=== PATIENT | female | born 1970 | race Caucasian/White ===

== ENCOUNTER 2017-01-03 17:03 | Emergency (ER) | payer SELFPAY ==
[~2017-01-03] VITALS: Ht 165.1 cm; Wt 66.0 kg
[2017-01-03 17:05] VITALS: BP 153/88; PULSE 87; RESP 14; TEMP 98.2; O2SAT 97
--- NOTE | 2017-01-03 18:19 | PD ---
HPI Chief Complaint: Musculoskeletal Complaint Time Seen by Provider: 18:19 Travel History International Travel<30 days: No Contact w/Intl Traveler<30days: No Traveled to known affect area: No History of Present Illness HPI 46-year-old female presents emergency Department with complaint of right elbow pain since last Monday after hitting it against a wall very hard. Thought her symptoms would improve but they haven't. She tried picking something up at work today and almost dropped it because she had shocking pain go up and down her arm from her elbow. Reports her elbow did become edematous after she hit it but has subsided. She hasn't taken any medications or tried any treatments any treatments to alleviate her symptoms. Pain is aggravated with straightening her arm. No known relieving factors. Denies paresthesias, loss of sensation. Reports decreased range of motion secondary to pain. Dr. Vanessa is primary care provider. History of asthma. Allergies to antihistamines, contrast media, Rocephin, Toradol. No other modifying factors or associated signs and symptoms. PFSH Past Medical History Asthma: Yes Respiratory: Yes (ASTHMA) Social History Tobacco Use: No Allergies-Medications (Allergen,Severity, Reaction): Coded Allergies: Contrast Media (Verified Allergy, Severe, HIVES, 01/03/17) Rocephin (Verified Allergy, Severe, HIVES, 01/03/17) Toradol (Verified Allergy, Severe, HIVES, 01/03/17) Uncoded Allergies: ANTIHISTAMINE (Allergy, Severe, HIVES, 01/03/17) Review of Systems Except as stated in HPI: all other systems reviewed are Neg Physical Exam Narrative GENERAL: Well-nourished, well-developed female patient, in no acute distress; afebrile, nontoxic-appearing SKIN: Warm and dry. HEAD: Atraumatic. Normocephalic. EYES: Pupils equal and round. No scleral icterus. No injection or drainage. ENT: Mucosa pink and moist. Airway patent. NECK: Trachea midline. CARDIOVASCULAR: Regular rate. RESPIRATORY: No accessory muscle use. GASTROINTESTINAL: Flat. MUSCULOSKELETAL: Right elbow with decreased range of motion, unable to straighten arm completely secondary to pain; without edema; without erythema; with tenderness on palpation; with full 5/5 strength, but causes pain; sensory intact; 2+ radial pulse. No obvious deformities. No clubbing. No cyanosis. No edema. NEUROLOGICAL: Awake and alert. Oriented 3. No obvious cranial nerve deficits. Motor grossly within normal limits. Normal speech. PSYCHIATRIC: Appropriate mood and affect; insight and judgment normal. Data Data Last Documented VS Vital Signs Date Time Temp Pulse Resp B/P Pulse Ox O2 Delivery O2 Flow Rate FiO2 01/03/17 17:05 98.2 87 14 153/88 97 Room Air Orders Elbow, Complete (4 Vws) (01/03/17 18:20) Sling Cradle Arm (01/03/17 ) Sling Cradle Arm (01/03/17 ) [facility] Medical Decision Making Medical Screen Exam Complete: Yes Emergency Medical Condition: Yes Medical Record Reviewed: Yes Differential Diagnosis Elbow fracture, nerve impingement, elbow contusion Narrative Course 46-year-old female with right elbow pain or injuring it last Monday. Patient is afebrile and nontoxic appearing. The right upper extremity supple and non- tense with 2+ radial pulse and sensory intact without erythema or edema. The patient is unable to extend the arm completely secondary to pain. She does have full pulling strength but causes shooting pain up and down her arm. I offered the patient a nonnarcotic and she declined at this time. Right elbow x- ray ordered. 1905: Right elbow x-ray concludes an unremarkable examination. Arm sling provided for support. Instructed patient to follow up with orthopedic as needed. The patient prescriptions for narcotics for home and she declined at this time. Patient is medically cleared and stable for discharge. Discussed reasons to return to the emergency department. Instructed patient to follow up with primary care provider. Patient agrees with treatment plan. The patients vital signs are stable and the patient is stable for outpatient follow-up and treatment. Patient discharged home, stable and in no acute distress. Diagnosis Primary Impression: Contusion of right elbow Qualified Code: S50.01XA - Contusion of right elbow, initial encounter Referrals: Primary Care Physician Patient Instructions: Contusion in Adults (ED), General Instructions Departure Forms: Tests/Procedures, Work Release Enter return to work date: Jan 04, 2017 Additional Instructions: Ibuprofen or Tylenol as directed and as needed for pain and inflammation Rest and immobilize the affected area Apply ice to reduce swelling to affected area Avoid elbow pressure by not leaning or placing your weight on your elbow to rise from a lying or sitting position Follow-up with primary care provider Follow-up with orthopedic as needed Return to the emergency department immediately with worsening of symptoms Med/Other Pt SpecificInfo: Prescription(s) given Disposition: 01 DISCHARGE HOME Condition: Stable Wendy Irizarry Jan 03, 2017 18:19
--- NOTE | 2017-01-03 18:59 | RADRPT ---
EXAM DATE/TIME: 01/03/2017 18:35 [facility] COMPARISON: No previous studies available for comparison. INDICATIONS : Patient states right posterior elbow pain from hitting counter a week ago. MEDICAL HISTORY : None. SURGICAL HISTORY : None. ENCOUNTER: Initial ACUITY: 1 week PAIN SCORE: 9/10 LOCATION: Right posterior elbow. FINDINGS: Multiple view examination of the right elbow demonstrates no soft tissue swelling, joint effusion, or fracture. The osseous structures are in normal alignment. Bony mineralization is normal. CONCLUSION: Unremarkable examination of the right elbow. Deejay Park MD on January 03, 2017 at 18:55 Board Certified Radiologist. This report was verified electronically.
== END 2017-01-03 19:22 | disposition home or self-care (01) ==
LOC: NEPB 17:03
DX: S50.01XA Contusion of right elbow, initial encounter (principal); J45.909 Unspecified asthma, uncomplicated; W22.01XA Walked into wall, initial encounter
CPT/HCPCS: 73080; 99283

== ENCOUNTER 2017-05-03 17:40 | Emergency (ER) | payer OTHER, MEDICARE ==
[~2017-05-03] VITALS: Ht 165.1 cm; Wt 75.0 kg
[2017-05-03 17:41] VITALS: BP 148/87; PULSE 92; RESP 18; TEMP 98.5; O2SAT 95
--- NOTE | 2017-05-03 17:56 | PD ---
Physical Exam Time Seen by Provider: 17:54 Narrative 46yo F c/o left 5th toe laceration and injury today. Patient seen in triage. VS reviewed. Awaiting bed placement. Data Data Last Documented VS Vital Signs Date Time Temp Pulse Resp B/P Pulse Ox O2 Delivery O2 Flow Rate FiO2 05/03/17 17:41 98.5 92 18 148/87 95 Room Air MDM Supervised Visit with CARLY: Wendy Batista May 03, 2017 17:56
--- NOTE | 2017-05-03 19:20 | PD ---
HPI Chief Complaint: Injury Time Seen by Provider: 19:15 Travel History International Travel<30 days: No Contact w/Intl Traveler<30days: No Traveled to known affect area: No History of Present Illness HPI 46 yo F c/o L 5th toe pain after she stubbed it against a metal sign at work. Pain was severe. Bleeding was brisk, but resolved with a band aid. No other injury to report. She has been ambulatory since the accident. PFSH Past Medical History Asthma: Yes Respiratory: Yes (ASTHMA) ?: Not Past Surgical History Hysterectomy: Yes Social History Tobacco Use: No Allergies-Medications (Allergen,Severity, Reaction): Coded Allergies: Contrast Media (Verified Allergy, Severe, HIVES, 01/03/17) Rocephin (Verified Allergy, Severe, HIVES, 01/03/17) Toradol (Verified Allergy, Severe, HIVES, 01/03/17) Uncoded Allergies: ANTIHISTAMINE (Allergy, Severe, HIVES, 01/03/17) Reported Meds & Prescriptions Reported Meds & Active Scripts Active Reported Omeprazole 20 Mg Tab 20 Mg PO DAILY Review of Systems General / Constitutional: No: Fever Musculoskeletal: Positive: Pain Physical Exam Narrative GENERAL: 46 yo F, WNWD, mild distress SKIN: Warm and dry. Approx 0.5cm in circumference avulsion along the 5th at it' s distal portion with trace residual red blood. HEAD: Normocephalic. EYES: No scleral icterus. No injection or drainage. NECK: Supple, trachea midline. No JVD or lymphadenopathy. CARDIOVASCULAR: Regular rate and rhythm without murmurs, gallops, or rubs. MUSCULOSKELETAL: No cyanosis, or edema. Small avulsion as noted without gross deformity otherwise. BACK: Nontender without obvious deformity. No CVA tenderness. Data Data Last Documented VS Vital Signs Date Time Temp Pulse Resp B/P Pulse Ox O2 Delivery O2 Flow Rate FiO2 05/03/17 17:41 98.5 92 18 148/87 95 Room Air VS reviewed Orders Foot, Complete ([id number]) (05/03/17 ) ^ Wound Care (05/03/17 19:18) Ibuprofen (Motrin) (05/03/17 19:30) MDM Medical Decision Making Medical Screen Exam Complete: Yes Emergency Medical Condition: Yes Differential Diagnosis Closed fracture, open fracture, avulsion, laceration Narrative Course Foot xray: no fracture of the 5th digit Wound irrigated and dressed. Pt given Motrin, an appropriate intervention for a stubbed toe with skin avulsion. Pt ready for discharge. Diagnosis Primary Impression: Toe abrasion Qualified Code: S90.415A - Toe abrasion, left, initial encounter Additional Impression: Toe contusion Qualified Code: S90.222A - Contusion of lesser toe of left foot with damage to nail, initial encounter Referrals: Nathan Vanessa MD 2 days Additional Instructions: You have a choice when it comes to health care, and we are glad that you chose [facility]. Hopefully, we have met your expectations on today's visit. You are welcome to return to [facility] at any time, as we are committed to meeting the health care needs of our community. Med/Other Pt SpecificInfo: No Change to Meds Disposition: 01 DISCHARGE HOME Condition: Stable Caleb Vargas MD May 03, 2017 19:19
[2017-05-03] MEDS ORDERED: OMEP20TA PO (19:27)
[2017-05-03] MEDS ORDERED: IBUPROFEN 600 MG TAB PO ONE (19:30)
--- NOTE | 2017-05-03 20:24 | RADRPT ---
EXAM DATE/TIME: 05/03/2017 19:41 [facility] COMPARISON: No previous studies available for comparison. INDICATIONS : Patient kicked a metal sign today and cut left foot fifth digit. MEDICAL HISTORY : None. SURGICAL HISTORY : None. ENCOUNTER: Initial ACUITY: 1 day PAIN SCORE: 8/10 LOCATION: Left Foot,Fifth digit. FINDINGS: Three view examination of the left foot demonstrates no acute dislocation or fracture. There is soft tissue swelling over the fifth digit. The tarsal bones appear intact. The interphalangeal and metat arsophalangeal joints are intact. The calcaneus is intact. Bony mineralization is normal. CONCLUSION: Soft tissue swelling over the fifth digit with no acute fracture or malalignment. John Washington MD on May 03, 2017 at 20:22 Board Certified Radiologist. This report was verified electronically.
== END 2017-05-03 20:18 | disposition home or self-care (01) ==
LOC: NEPD 17:40
DX: S90.32XA Contusion of left foot, initial encounter (principal); S90.415A Abrasion, left lesser toe(s), initial encounter; W22.09XA Striking against other stationary object, initial encounter; Y92.9 Unspecified place or not applicable; Y99.0 Civilian activity done for income or pay; J45.909 Unspecified asthma, uncomplicated
CPT/HCPCS: 73630; 99283

== ENCOUNTER 2017-05-21 22:54 | Emergency (ER) | payer MEDICARE ==
[~2017-05-21] VITALS: Ht 165.1 cm; Wt 78.6 kg
[2017-05-21] VITALS (10 sets, daily range): BP systolic 110–139; BP diastolic 56–97; PULSE 98–110; RESP 18–22; TEMP 98.3–98.5; O2SAT 97–100
[~2017-05-21 22:54] MED LIST: OMEP20TA PO
--- NOTE | 2017-05-21 23:11 | PD ---
HPI Chief Complaint: allergic reaction Time Seen by Provider: 23:08 Travel History International Travel<30 days: No Contact w/Intl Traveler<30days: No History of Present Illness HPI This is a 46-year-old female who was dying her hair earlier today when she got some hair dye in her mouth and then she started to feel weird tingling sensation around her lips and in the back of her throat. Now she started to have a cough, constant, moderate severity with no sputum production. She denies any shortness of breath, rash, lightheadedness or dizziness but she does feel little bit scared. She's had allergic reactions before and reports that she was in anaphylactic shock before. She says it was treated in the doctor's office and then resolved on its own and she never went to the hospital for it. [facility] Past Medical History Asthma: Yes Anxiety: Yes GERD: Yes Insomnia: Yes Respiratory: Yes (ASTHMA) Past Surgical History Eye Surgery: Yes (L EYE) Hysterectomy: Yes Social History Alcohol Use: No Tobacco Use: No Substance Use: No Allergies-Medications (Allergen,Severity, Reaction): Coded Allergies: Contrast Media (Verified Allergy, Severe, HIVES, 05/21/17) Rocephin (Verified Allergy, Severe, HIVES, 05/21/17) Toradol (Verified Allergy, Severe, HIVES, 05/21/17) Uncoded Allergies: ANTIHISTAMINE (Allergy, Severe, HIVES, 01/03/17) Reported Meds & Prescriptions Reported Meds & Active Scripts Active Reported Omeprazole 20 Mg Tab 20 Mg PO DAILY Review of Systems Except as stated in HPI: all other systems reviewed are Neg Physical Exam Narrative GENERAL:Well appearing, no acute distress SKIN: Focused skin assessment warm and dry. HEAD: Atraumatic. Normocephalic. EYES: Pupils equal and round. No injection or drainage. ENT: Moist mucous membranes NECK: Trachea midline. CARDIOVASCULAR: Regular rate and rhythm. No murmur appreciated. RESPIRATORY: Clear to auscultation. Breath sounds equal bilaterally. GASTROINTESTINAL: Abdomen soft, non-tender, nondistended. MUSCULOSKELETAL: No obvious deformities. NEUROLOGICAL: Awake and alert. No obvious cranial nerve deficits. Moving all extremities. PSYCHIATRIC: Appropriate mood and affect; insight and judgment normal. Data Data Last Documented VS Vital Signs Date Time Temp Pulse Resp B/P Pulse Ox O2 Delivery O2 Flow Rate FiO2 05/21/17 23:05 110 20 131/97 100 05/21/17 23:00 98.3 Room Air Orders Lidocaine Pf 4% Neb (Lidocaine Pf 4% Neb (05/21/17 23:15) Methylprednisolone So Succ Inj (Solumedr (05/21/17 23:15) Lorazepam Inj (Ativan Inj) (05/21/17 23:15) Sodium Chlor 0.9% 1000 Ml Inj (Ns 1000 M (05/21/17 23:15) Epinephrine (1:1000) Inj (Adrenalin (1:1 (05/21/17 23:15) Diphenhydramine Inj (Benadryl Inj) (05/22/17 00:00) Famotidine Inj (Pepcid Inj) (05/22/17 00:00) MDM Medical Decision Making Medical Screen Exam Complete: Yes Emergency Medical Condition: Yes Interpretation(s) Afebrile, tachycardic, normotensive Differential Diagnosis Allergic reaction, anaphylaxis, angioedema Narrative Course This is a 46-year-old female who presents to the emergency department having gotten hair dye in her mouth and ever since then she's had an allergic reaction. She's been intubated in the setting of asthma in the past and has had serious allergic reactions which have required epinephrine. Here in the emergency department she appears anxious, has some wheezing on exam, has a normal oxygen saturation is able to speak full sentences. She was given IM epinephrine and steroids. She is very argumentative regarding medications. Initially she didn't want any antihistamines because they make her sleep and she didn't want any albuterol because she gets persistent tachycardia from it. She was given some nebulized lidocaine as she had a cough, and was given Ativan and she clinically appears improved but now she is reporting a sensation of a lump in her throat. She is now amenable to receiving antihistamines and Xopenex. Patient will be signed out to oncoming provider. She will likely require admission for acute allergic reaction. Critical Care Narrative Aggregate critical care time was 35 minutes. Time to perform other separately billable procedures was not included in the critical care time. My time did not include minutes spent treating any other patients simultaneously or on activities that did not directly contribute to the patient's treatment. The services I provided to this patient were to treat and/or prevent clinically significant deterioration that could result in: disability, I provided critical care services requiring my management, as noted below: Chart data review, documentation time, medication orders and management, vital sign assessments/reviewing monitor data, ordering and reviewing lab tests, ordering and interpreting/reviewing x-rays and diagnostic studies, care of the patient and discussion of the patient with the admitting physicians. Elen Quevedo MD May 21, 2017 23:11
[2017-05-21] MEDS ORDERED: EPINEPHrine HCL (1:1000) 1 MG/ML VIAL IM ONE (23:15)
[2017-05-21] MEDS ORDERED: LORazepam 2 MG/ML VIAL IV PUSH ONE (23:15)
[2017-05-21] MEDS ORDERED: SODIUM CHLOR 0.9% 1000 ML INJ 1,000 ML IV ONE (23:15)
[2017-05-21] MEDS ORDERED: RESP: LIDOCAINE HCL 4% PF 5 ML NEB INH ONE (23:15)
[2017-05-21] MEDS ORDERED: methylPREDNISolone SOD SUCC 125 MG/2 ML VIAL IV PUSH ONE (23:15)
[2017-05-21] MEDS ORDERED: RESP: LEVALBUTEROL HYDROCHLORIDE 1.25 MG/3 ML NEB (SCH) NEB (23:45)
[2017-05-22] VITALS: BP 134/71; PULSE 98; RESP 20; O2SAT 97
[2017-05-22] MEDS ORDERED: diphenhydrAMINE HCL 50 MG/ML VIAL IV PUSH ONE
[2017-05-22] MEDS ORDERED: FAMOTIDINE 20 MG/2 ML VIAL IV PUSH SCH
[2017-05-22 00:05] VITALS: BP 117/63; PULSE 102; RESP 20; O2SAT 96
[2017-05-22] MEDS ORDERED: LORazepam 2 MG/ML VIAL IV PUSH ONE (00:15)
[2017-05-22 00:20] VITALS: BP 109/61; PULSE 106; RESP 18; O2SAT 96
[2017-05-22 00:35] VITALS: BP 125/78; PULSE 102; RESP 18; O2SAT 96
[2017-05-22] MEDS ORDERED: ANXIETY MEDICATION PO (00:46)
--- NOTE | 2017-05-22 01:12 | PD ---
Physical Exam Time Seen by Provider: 01:[address] Quevedo left this patient with me to check the patient and discharge if she was feeling better. Data Data Last Documented VS Vital Signs Date Time Temp Pulse Resp B/P Pulse Ox O2 Delivery O2 Flow Rate FiO2 05/22/17 00:20 106 18 109/61 96 Room Air 05/21/17 23:45 98.5 Orders Lidocaine Pf 4% Neb (Lidocaine Pf 4% Neb (05/21/17 23:15) Methylprednisolone So Succ Inj (Solumedr (05/21/17 23:15) Lorazepam Inj (Ativan Inj) (05/21/17 23:15) Sodium Chlor 0.9% 1000 Ml Inj (Ns 1000 M (05/21/17 23:15) Epinephrine (1:1000) Inj (Adrenalin (1:1 (05/21/17 23:15) Diphenhydramine Inj (Benadryl Inj) (05/22/17 00:00) Famotidine Inj (Pepcid Inj) (05/22/17 00:00) Levalbuterol Neb (Xopenex Neb) (05/21/17 23:45) Lorazepam Inj (Ativan Inj) (05/22/17 00:15) MDM Medical Record Reviewed: Yes Supervised Visit with CARLY: Yes Differential Diagnosis Allergic reaction, asthma, anaphylaxisunlikely Narrative Course It is now 10 9 in the morning and the patient is feeling better. There are no wheezes present. The patient will be given a 2 day work excuse. She will follow-up with her primary care physician this week. Diagnosis Primary Impression: Allergic reaction Additional Impression: Anxiety Additional Instruction: Follow-up with your primary care physician this week. Disposition: 01 DISCHARGE HOME Condition: Stable Roberto Pavon MD May 22, 2017 01:12
[2017-05-22 01:30] VITALS: BP 131/66
== END 2017-05-22 01:37 | disposition home or self-care (01) ==
LOC: PHED 22:54
DX: T78.40XA Allergy, unspecified, initial encounter (principal); F41.9 Anxiety disorder, unspecified; J45.909 Unspecified asthma, uncomplicated; X58.XXXA Exposure to other specified factors, initial encounter
CPT/HCPCS: 94640; 94664; 96361; 96372; 96374; 96375; 96376; 99291; J0171; J1200; J2060; J2930; J7030; J7614

== ENCOUNTER 2017-06-19 10:35 | Emergency (ER) | payer MEDICARE ==
[~2017-06-19] VITALS: Ht 165.1 cm; Wt 74.0 kg
[2017-06-19 10:35] VITALS: BP 139/83; PULSE 75; RESP 18; TEMP 98; O2SAT 96
[~2017-06-19 10:35] MED LIST changes: +ANXIETY MEDICATION PO
[2017-06-19] MEDS ORDERED: SODIUM CHLOR 0.9% 1000 ML INJ 1,000 ML IV ONE (10:43)
[2017-06-19 10:45] VITALS: RESP 18; O2SAT 96
[2017-06-19] MEDS ORDERED: PROCHLORPERAZINE INJ 10 MG/2 ML VIAL IVP ONE (10:45)
[2017-06-19] MEDS ORDERED: SODIUM CHLORIDE 0.9% FLUSH 10 ML FLUSH IVF PRN (10:45)
--- NOTE | 2017-06-19 10:49 | PD ---
HPI Chief Complaint: GI Complaint Time Seen by Provider: 10:41 Travel History International Travel<30 days: No Contact w/Intl Traveler<30days: No History of Present Illness HPI 46 -year-old female complains of nausea and vomiting for about 5-6 hours. She reports about 20 episodes of vomiting each time accompanied by diarrhea, both nonbloody however the emesis was bilious. She denies fever. She reports generalized abdominal pain. Last food was a steak dinner with friends. She believes a Caesar salad may have been spoiled. Location gastrointestinal. 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 ) Social History Alcohol Use: Yes (Socially) Tobacco Use: No Substance Use: No Allergies-Medications (Allergen,Severity, Reaction): Coded Allergies: Contrast Media (Verified Allergy, Severe, HIVES, 06/19/17) Rocephin (Verified Allergy, Severe, HIVES, 06/19/17) Toradol (Verified Allergy, Severe, HIVES, 06/19/17) Uncoded Allergies: ANTIHISTAMINE (Allergy, Severe, HIVES, 01/03/17) Reported Meds & Prescriptions Reported Meds & Active Scripts Active Zofran Odt (Ondansetron Odt) 4 Mg Tab 4 Mg SL Q6HR PRN Reported [Anxiety Medication] 1 Tab PO HS Omeprazole 20 Mg Tab 20 Mg PO DAILY Review of Systems Except as stated in HPI: all other systems reviewed are Neg Physical Exam Narrative GENERAL: 46-year-old female well-nourished well-developed SKIN: Focused skin assessment warm/dry. HEAD: Atraumatic. Normocephalic. EYES: Pupils equal and round. No scleral icterus. No injection or drainage. ENT: No nasal bleeding or discharge. Mucous membranes pink and moist. NECK: Trachea midline. No JVD. CARDIOVASCULAR: Regular rate and rhythm. No murmur appreciated. RESPIRATORY: No accessory muscle use. Clear to auscultation. Breath sounds equal bilaterally. GASTROINTESTINAL: Soft. Nonspecific generalized tenderness consistent with recurrent episodes of vomiting. MUSCULOSKELETAL: No obvious deformities. No clubbing. No cyanosis. No edema. NEUROLOGICAL: Awake and alert. No obvious cranial nerve deficits. Motor grossly within normal limits. Normal speech. PSYCHIATRIC: Appropriate mood and affect; insight and judgment normal. Data Data Last Documented VS Vital Signs Date Time Temp Pulse Resp B/P Pulse Ox O2 Delivery O2 Flow Rate FiO2 06/19/17 12:47 90 16 141/81 100 Room Air 06/19/17 10:35 98.0 Orders Ecg Monitoring (06/19/17 10:43) Iv Access Insert/Monitor (06/19/17 10:43) Oximetry (06/19/17 10:43) Sodium Chloride 0.9% Flush (Ns Flush) (06/19/17 10:45) Prochlorperazine Inj (Compazine Inj) (06/19/17 10:45) Sodium Chlor 0.9% 1000 Ml Inj (Ns 1000 M (06/19/17 10:43) Promethazine Inj (Phenergan Inj) (06/19/17 12:00) MDM Medical Decision Making Medical Screen Exam Complete: Yes Emergency Medical Condition: Yes Medical Record Reviewed: Yes Differential Diagnosis Constipation, Gastritis, Acute Cholecystitis, Biliary Colic, Pancreatitis, WANG , Hepatitis, Bowel Obstruction, Cystitis, Mesenteric Ischemia, AAA, Appendicitis , Renal Stone/Hydronephrosis, GERD, perforated viscous Narrative Course Pt's presentation c/w gastroenteritis. 1L NS given along with Compazine. 1120: pt resting comfortably, supine position, reports feeling sleepy, reports decreased severity of nausea 1150: dry heaving observed; phenergan IM ordered 1300: pt asleep though arousable, reports continued improvement though mild nausea; pt states she has transportation home via her aunt We will send home with Zofran. Return precautions discussed. Diagnosis Primary Impression: Nausea vomiting and diarrhea Referrals: Primary Care Physician 2 days Additional Instructions: Please return to the ER if you continue vomiting. If you develop a fever or if you develop severe abdominal pain please return to the ER. If you develop constant or severe abdomen pain especially within the next 6-8 hours return to the ER without delay. Take Zofran as needed every 6-8 hours for nausea and vomiting. Try to eat bland floods over the next few days to ease your symptoms. Med/Other Pt SpecificInfo: Prescription(s) given Scripts Ondansetron Odt (Zofran Odt)4 Mg Tab4 Mg SL Q6HR PRN (Nausea/Vomiting) #10 TAB Ref 0 Prov:Caleb Vargas MD 06/19/17 Disposition: 01 DISCHARGE HOME Condition: Stable Caleb Vargas MD Jun 19, 2017 10:49
[2017-06-19] MEDS ORDERED: ZOFR4TAB3 SL (10:51)
[2017-06-19 11:46] VITALS: BP 127/78; PULSE 78; RESP 16; O2SAT 100
[2017-06-19] MEDS ORDERED: PROMETHAZINE INJ 25 MG/ML VIAL IM ONE (12:00)
[2017-06-19 12:47] VITALS: BP 141/81; PULSE 90; RESP 16; O2SAT 100
[2017-06-19 13:13] VITALS: BP 137/78; PULSE 88; RESP 16; O2SAT 98
[2017-06-19] MEDS ORDERED: ONDANSETRON ODT 4 MG TAB PO ONE (13:15)
== END 2017-06-19 13:39 | disposition home or self-care (01) ==
LOC: PHED 10:35
DX: R11.2 Nausea with vomiting, unspecified (principal); R19.7 Diarrhea, unspecified; R10.84 Generalized abdominal pain; K21.9 Gastro-esophageal reflux disease without esophagitis; F41.9 Anxiety disorder, unspecified
CPT/HCPCS: 96361; 96372; 96374; 99284; J0780; J2550; J7030

== ENCOUNTER 2017-09-26 11:24 | Emergency (ER) | payer SELFPAY ==
[~2017-09-26] VITALS: Ht 165.1 cm; Wt 77.3 kg
[~2017-09-26 11:24] MED LIST changes: -OMEP20TA PO; +OMEP20TA93 PO; +ZOFR4TAB3 SL
[2017-09-26 11:27] VITALS: BP 139/87; PULSE 94; RESP 16; TEMP 97.7; O2SAT 97
[2017-09-26] MEDS ORDERED: CITA20TA4 PO (11:44)
[2017-09-26] MEDS ORDERED: MECLIZINE HCL 25 MG TAB PO ONE (12:00)
--- NOTE | 2017-09-26 12:04 | PD ---
HPI Chief Complaint: Dizziness Time Seen by Provider: 11:47 Travel History International Travel<30 days: No Contact w/Intl Traveler<30days: No Traveled to known affect area: No History of Present Illness HPI This 46-year-old female says she has not felt well for the past week or so. She 's been having a headache. The headache is in the frontal and occipital areas. Says she is not prone to headaches. The headache is fairly constant. She is having intermittent bouts of vertigo vertigo is quite severe. When she gets the vertigo she has trouble standing. She is she does not have numbness or tingling. Says she has not had trouble like this before. She did notice that the vertigo is worse when she bends her head backwards. It is not affected by position change. She is also noted that she's been very thirsty this past week. She says when she thirsty. She says she's been feeling quite lightheaded. She feels at times like she is given a pass out. 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 ) Social History Alcohol Use: Yes (Socially) Tobacco Use: No Substance Use: No Allergies-Medications (Allergen,Severity, Reaction): Coded Allergies: ceftriaxone (Unverified Allergy, Severe, HIVES, 09/26/17) diatrizoate meglumine (Unverified Allergy, Severe, HIVES, 09/26/17) gadobenic acid (Unverified Allergy, Severe, HIVES, 09/26/17) gadodiamide (Unverified Allergy, Severe, HIVES, 09/26/17) gadoteridol (Unverified Allergy, Severe, HIVES, 09/26/17) iodixanol (Unverified Allergy, Severe, HIVES, 09/26/17) iohexol (Unverified Allergy, Severe, HIVES, 09/26/17) ketorolac (Unverified Allergy, Severe, HIVES, 09/26/17) latex (Verified Allergy, Severe, 09/26/17) Uncoded Allergies: ANTIHISTAMINE (Allergy, Severe, HIVES, 01/03/17) Reported Meds & Prescriptions Reported Meds & Active Scripts Active Reported Citalopram (Citalopram Hydrobromide) 20 Mg Tab 20 Mg PO HS Omeprazole 20 Mg Tab 20 Mg PO DAILY Review of Systems General / Constitutional: No: Fever, Chills Eyes: No: Diploplia, Blurred Vision HENT: Positive: Headaches, Vertigo, No: Neck Stiffness Cardiovascular: No: Chest Pain or Discomfort, Palpitations Respiratory: No: Cough, Shortness of Breath Gastrointestinal: No: Nausea, Vomiting Genitourinary: No: Urgency, Frequency Musculoskeletal: No: Myalgias, Arthralgias Skin: No Rash, No Itching Neurologic: Positive: Dizziness, Headache, No: Weakness Endocrine: No: Heat Intolerance Hematologic/Lymphatic: No: Easy Bruising Physical Exam Narrative GENERAL: Well-developed female SKIN: Focused skin assessment warm/dry. HEAD: Atraumatic. Normocephalic. EYES: Pupils equal and round. No scleral icterus. No injection or drainage. There is nystagmus on right lateral gaze ENT: No nasal bleeding or discharge. Mucous membranes pink and moist. TMs are normal NECK: Trachea midline. No JVD. CARDIOVASCULAR: Regular rate and rhythm. No murmur appreciated. RESPIRATORY: No accessory muscle use. Clear to auscultation. Breath sounds equal bilaterally. GASTROINTESTINAL: Abdomen soft, non-tender, nondistended. Hepatic and splenic margins not palpable. MUSCULOSKELETAL: No obvious deformities. No clubbing. No cyanosis. No edema. NEUROLOGICAL: Awake and alert. There is questionable drooping of the right side of the mouth Motor grossly within normal limits. Normal speech. Sensation is intact. Fluxer are equal PSYCHIATRIC: Appropriate mood and affect; insight and judgment normal. Data Data Last Documented VS Vital Signs Date Time Temp Pulse Resp B/P (MAP) Pulse Ox O2 Delivery O2 Flow Rate FiO2 09/26/17 14:04 77 16 119/70 (86) 99 Room Air 09/26/17 11:27 97.7 Orders Orders Complete Blood Count With Diff (09/26/17 11:57) Basic Metabolic Panel (Bmp) (09/26/17 11:57) Mri Brain W/O Contrast (09/26/17 ) Meclizine (Antivert) (09/26/17 12:00) Urinalysis - C+S If Indicated (09/26/17 13:23) Acetaminophen (Tylenol) (09/26/17 14:30) Labs Laboratory Tests Test 09/26/17 12:10 09/26/17 13:25 White Blood Count 6.2 TH/MM3 Red Blood Count 5.23 MIL/MM3 Hemoglobin 14.7 GM/DL Hematocrit 44.1 % Mean Corpuscular Volume 84.3 FL Mean Corpuscular Hemoglobin 28.2 PG Mean Corpuscular Hemoglobin Concent 33.4 % Red Cell Distribution Width 12.2 % Platelet Count 319 TH/MM3 Mean Platelet Volume 7.3 FL Neutrophils (%) (Auto) 55.8 % Lymphocytes (%) (Auto) 30.9 % Monocytes (%) (Auto) 9.7 % Eosinophils (%) (Auto) 2.4 % Basophils (%) (Auto) 1.2 % Neutrophils # (Auto) 3.5 TH/MM3 Lymphocytes # (Auto) 1.9 TH/MM3 Monocytes # (Auto) 0.6 TH/MM3 Eosinophils # (Auto) 0.1 TH/MM3 Basophils # (Auto) 0.1 TH/MM3 CBC Comment DIFF FINAL Differential Comment Blood Urea Nitrogen 11 MG/DL Creatinine 0.57 MG/DL Random Glucose 93 MG/DL Calcium Level 8.9 MG/DL Sodium Level 139 MEQ/L Potassium Level 4.0 MEQ/L Chloride Level 103 MEQ/L Carbon Dioxide Level 29.0 MEQ/L Anion Gap 7 MEQ/L Estimat Glomerular Filtration Rate 114 ML/MIN Urine Collection Type CLEAN CATCH Urine Color YELLOW Urine Turbidity CLEAR Urine pH 7.5 Urine Specific [place] 1.008 Urine Protein NEG mg/dL Urine Glucose (UA) NEG mg/dL Urine Ketones NEG mg/dL Urine Occult Blood TRACE Urine Nitrite NEG Urine Bilirubin NEG Urine Leukocyte Esterase NEG Urine RBC 0-3 /hpf Urine WBC 0-2 /hpf Urine Squamous Epithelial Cells 0-5 /hpf Microscopic Urinalysis Comment CULT NOT INDICATED Urine Collection Time 13:25 MDM Medical Decision Making Medical Screen Exam Complete: Yes Emergency Medical Condition: Yes Medical Record Reviewed: Yes Differential Diagnosis Differential includes labyrinthitis, central cause of vertigo Narrative Course The severe headache is concerning for a central cause of vertigo. This is not typical vertigo as it is not affected by movement. I have requested an MRI. The patient has previously had an MRI many years ago and apparently is allergic to dye. MRI has been done and is negative. Her lab work is unremarkable. Diagnosis Primary Impression: acute vertigo Additional Impression: Labyrinthitis Qualified Codes: H83.09 - Labyrinthitis, unspecified ear Scripts Meclizine HCl (Meclizine 25) 25 Mg Tab 1 TAB PO Q6HR for Vertigo, #30 Prov: Willam White MD 09/26/17 Disposition: 01 DISCHARGE HOME Condition: Stable Willam White MD Sep 26, 2017 12:04
[2017-09-26 12:21] LABS: AUTOMATED NEUTROPHIL # 3.5 TH/MM3 (1.8-7.7); BASOPHIL # 0.1 TH/MM3 (0-0.2); BASOPHIL % 1.2 % (0.0-2.0); EOSINOPHIL # 0.1 TH/MM3 (0-0.4); EOSINOPHIL % 2.4 % (0.0-4.0); HEMATOCRIT 44.1 % (35.0-46.0); HEMO FLAGS DIFF FINAL; LYMPH % 30.9 % (9.0-44.0); LYMPHOCYTE # 1.9 TH/MM3 (1.0-4.8); MEAN CELL VOLUME 84.3 FL (80.0-100.0); MEAN CORPUSCULAR HEMOGLOBIN 28.2 PG (27.0-34.0); MEAN CORPUSCULAR HGB CONC 33.4 % (32.0-36.0); MONO % 9.7 % (0.0-8.0); NEUT % 55.8 % (16.0-70.0); PLATELET COUNT 319 TH/MM3 (150-450); RED BLOOD COUNT 5.23 MIL/MM3 (4.00-5.30); RED CELL DISTRIBUTION WIDTH 12.2 % (11.6-17.2); WHITE BLOOD COUNT 6.2 TH/MM3 (4.0-11.0)
[2017-09-26 13:37] LABS: GLUCOSE,URINE NEG (NEG); KETONE, URINE NEG (NEG); NITRITE,URINE NEG (NEG); PH, URINE 7.5 (5.0-8.5)
[2017-09-26 13:41] LABS: BLOOD, URINE TRACE (NEG)
[2017-09-26 13:42] LABS: COMMENT (UR) CULT NOT INDICATED; CULTURE IF INDICATED CULT NOT INDICATED; METHOD OF COLLECTION CLEAN CATCH; RBC, URINE 0-3 /hpf (0-3); SQUAMOUS EPITHELIAL CELL URINE 0-5 /hpf (0-5); URINE COLOR YELLOW (YELLW/STRAW); WBC, URINE 0-2 /hpf (0-5)
[2017-09-26 14:04] VITALS: BP 119/70; PULSE 77; RESP 16; O2SAT 99
--- NOTE | 2017-09-26 14:21 | RADRPT ---
EXAM DATE/TIME: 09/26/2017 14:00 [facility] COMPARISON: No previous studies available for comparison. INDICATIONS : Vertigo. MEDICAL HISTORY : Carcinoma, ovarian. SURGICAL HISTORY : Tonsillectomy. Hysterectomy. Appendectomy. ENCOUNTER: Initial ACUITY: 1 day PAIN SCORE: 0/10 LOCATION: head TECHNIQUE: Multiplanar, multisequence MRI of the brain was performed without contrast. FINDINGS: CEREBRUM: The ventricles are normal for age. No evidence of midline shift, mass lesion, hemorrhage or acute in farction. No extraaxial fluid collections are seen. The pituitary gland and suprasellar cistern are normal in configuration. WHITE MATTER: No significant signal abnormalities are seen in the white matter. POSTERIOR FOSSA: The cerebellum and brainstem are intact. The 4th ventricle is midline. The cerebellopontine angle is unremarkable. The cerebellar tonsils are normal in position. DIFFUSION IMAGING: No focal areas of restricted diffusion are seen. No evidence of acute infarction. EXTRACRANIAL: The visualized portions of the orbits and paranasal sinuses are unremarkable. CONCLUSION: Unremarkable noncontrast exam. John Washington MD on September 26, 2017 at 14:19 Board Certified Radiologist. This report was verified electronically.
[2017-09-26] MEDS ORDERED: MECL1TAB42 PO (14:30)
[2017-09-26] MEDS ORDERED: ACETAMINOPHEN 325 MG TAB PO ONE (14:30)
== END 2017-09-26 14:48 | disposition home or self-care (01) ==
LOC: PHED 11:24
DX: H83.09 Labyrinthitis, unspecified ear (principal)
CPT/HCPCS: 70551; 80048; 81001; 85025; 99284

== ENCOUNTER 2018-04-23 09:27 | Emergency (ER) | payer OTHER ==
[~2018-04-23] VITALS: Ht 162.6 cm; Wt 82.0 kg
[~2018-04-23 09:27] MED LIST changes: -ANXIETY MEDICATION PO; +CITA20TA4 PO; +MECL1TAB42 PO; -ZOFR4TAB3 SL
[2018-04-23 09:31] VITALS: BP 136/87; PULSE 77; RESP 16; TEMP 97.8; O2SAT 98
[2018-04-23] MEDS ORDERED: MUPI2OIN TOPICAL (10:00)
[2018-04-23] MEDS ORDERED: BACT800T5 PO (10:00)
--- NOTE | 2018-04-23 10:01 | PD ---
HPI Chief Complaint: Skin Problem Time Seen by Provider: 09:47 Travel History International Travel<30 days: No Contact w/Intl Traveler<30days: No Traveled to known affect area: No History of Present Illness HPI 47-year-old female here with possible infected insect bites. The insect bites originated 3-4 days ago. Yesterday she noticed areas become increasingly more red and painful. No fever chills. Symptom severity is moderate. No aggravating or alleviating factors. PFSH Past Medical History Hx Anticoagulant Therapy: No Asthma: Yes Bipolar Disorder: Yes Anxiety: Yes Cardiovascular Problems: Yes ([place]) Diabetes: No GERD: Yes Insomnia: Yes Psychiatric: Yes (Manic depression) Respiratory: Yes (ASTHMA) ?: Not Menopausal: Yes Past Surgical History Appendectomy: Yes Eye Surgery: Yes (L EYE) Hysterectomy: Yes Other Surgery: Yes (PECTUS EXCAVATUM AN INFANT) Social History Alcohol Use: Yes (Socially) Tobacco Use: No Substance Use: No Allergies-Medications (Allergen,Severity, Reaction): Coded Allergies: ceftriaxone (Unverified Allergy, Severe, HIVES, 04/23/18) diatrizoate meglumine (Unverified Allergy, Severe, HIVES, 04/23/18) gadobenic acid (Unverified Allergy, Severe, HIVES, 04/23/18) gadodiamide (Unverified Allergy, Severe, HIVES, 04/23/18) gadoteridol (Unverified Allergy, Severe, HIVES, 04/23/18) iodixanol (Unverified Allergy, Severe, HIVES, 04/23/18) iohexol (Unverified Allergy, Severe, HIVES, 04/23/18) ketorolac (Unverified Allergy, Severe, RESP DISTRESS, 04/23/18) latex (Verified Allergy, Severe, HIVES, 04/23/18) Uncoded Allergies: ANTIHISTAMINE (Allergy, Severe, BRADYCARDIA, 04/23/18) Reported Meds & Prescriptions Reported Meds & Active Scripts Active Bactrim DS (Sulfamethoxazole-Trimethoprim) 800-160 Mg Tab 1 Tab PO BID Mupirocin Topical (Mupirocin) 2 % Oint 1 Applic TOPICAL BID Reported Citalopram (Citalopram Hydrobromide) 20 Mg Tab 20 Mg PO HS Review of Systems Except as stated in HPI: all other systems reviewed are Neg General / Constitutional: No: Fever Eyes: No: Visual changes HENT: No: Headaches Cardiovascular: No: Chest Pain or Discomfort Respiratory: No: Shortness of Breath Gastrointestinal: No: Abdominal Pain Genitourinary: No: Dysuria Musculoskeletal: No: Pain Skin: Positive Rash Neurologic: No: Weakness Physical Exam Narrative GENERAL: Alert and well-appearing 39-year-old female. SKIN: Warm and dry. Several inflamed insect bites to the lower extremities and right upper extremity with mild erythema surrounding lesions. No extensive cellulitis, lymphangitis, fluctuance/induration. HEAD: Normocephalic. EYES: No injection or drainage. NECK: Supple, trachea midline. No lymphadenopathy. CARDIOVASCULAR: Regular rate and rhythm RESPIRATORY: Breath sounds equal bilaterally. No accessory muscle use. GASTROINTESTINAL: Abdomen soft, non-tender, nondistended. MUSCULOSKELETAL: No cyanosis, or edema. Data Data Last Documented VS Vital Signs Date Time Temp Pulse Resp B/P (MAP) Pulse Ox O2 Delivery O2 Flow Rate FiO2 04/23/18 09:31 97.8 77 16 136/87 (103) 98 MDM Medical Decision Making Medical Screen Exam Complete: Yes Emergency Medical Condition: Yes Differential Diagnosis Mildly infected insect bite, cellulitis, abscess Narrative Course 47-year-old female here with multiple inflamed insect bites with few appear mildly infected. Should be treated with BACTRIM and Bactroban ointment. She is nontoxic appearing. Instructed to follow-up with primary doctor for recheck. Return precautions discussed. Diagnosis Primary Impression: Superficial skin infection Referrals: Primary Care Physician Additional Instructions: Antibiotics as directed. Follow-up with your primary doctor. Scripts Sulfamethoxazole-Trimethoprim (Bactrim DS) 800-160 Mg Tab 1 TAB PO BID for Infection, #14 TAB 0 Refills Prov: Jossy Langley 04/23/18 Mupirocin Topical (Mupirocin Topical) 2 % Oint 1 APPLIC TOPICAL BID for Mgmt Bacterial Infection, #1 TUBE 0 Refills Prov: Jossy Langley 04/23/18 Disposition: 01 DISCHARGE HOME Condition: Stable Jossy Langley April 23, 2018 10:01
== END 2018-04-23 10:20 | disposition home or self-care (01) ==
LOC: PHEFT 09:27
DX: S80.862A Insect bite (nonvenomous), left lower leg, initial encounter (principal); S80.861A Insect bite (nonvenomous), right lower leg, initial encounter; S40.862A Insect bite (nonvenomous) of left upper arm, initial encounter; S40.861A Insect bite (nonvenomous) of right upper arm, initial encounter; L08.9 Local infection of the skin and subcutaneous tissue, unspecified; W57.XXXA Bitten or stung by nonvenomous insect and other nonvenomous arthropods, initial encounter; F31.9 Bipolar disorder, unspecified; F41.9 Anxiety disorder, unspecified; J45.909 Unspecified asthma, uncomplicated
CPT/HCPCS: 99283

== ENCOUNTER 2018-08-10 11:31 | Observation (INO) ==
[2018-08-10] MEDS ORDERED: Dexamethasone Inj 20 MG/5 ML Vial IV.PUSH ONE (11:35)
[2018-08-10] MEDS ORDERED: Acetaminophen 325 MG Tablet PO ONE (12:12)
[2018-08-10 12:15] LABS: Hematocrit 42.1 % (35.0-46.0); Mean Corpuscular HGB Conc 33.3 % (32.0-36.0); Mean Corpuscular Hemoglobin 29.6 pg (27.0-34.0); Mean Corpuscular Volume 88.9 fL (80.0-100.0); Mean Platelet Volume 7.6 fL (7.0-11.0); Platelet Count 323 th/mm3 (150-450); Red Blood Count 4.73 mil/mm3 (4.00-5.30); Red Cell Distribution Width 12.7 % (11.6-17.2); White Blood Count 10.2 th/mm3 (4.0-11.0)
--- NOTE | 2018-08-10 12:37 | XR ---
EXAM DATE: 08/10/2018 12:31 PM EDT AGE/SEX: 47 years / Female INDICATIONS: . Fever, and cough. CLINICAL DATA: This is the patient's initial encounter. Patient reports that signs and symptoms have been present for 1 week and indicates a pain score of 8/10. MEDICAL/SURGICAL HISTORY: . Pectus excavatum . Pectus excavatum surgery. COMPARISON: [facility], CHEST 1V SINGLE AP, 07/23/2018. . FINDINGS: PA and lateral views of the chest. Pectus excavatum deformity noted. Lungs are clear. No evidence of pleural effusion or pneumothorax. Cardiomediastinal silhouette within normal limits. Old right-sided rib fractures noted. CONCLUSION: No acute cardiopulmonary disease identified. Electronically signed by: Bud Parry MD 08/10/2018 12:35 PM EDT
[2018-08-10 12:45] LABS: Anion Gap 8 meq/L (5-15); Blood Urea Nitrogen 10 mg/dL (7-18); Calcium 8.4 mg/dL (8.5-10.1); Carbon Dioxide 26.7 meq/L (21.0-32.0); Chloride 104 meq/L (98-107); Glomerular Filtration Rate Greater Than 89 mL/min (>89); Glucose,Random 83 mg/dL (74-106); Potassium 4.1 meq/L (3.5-5.1); Sodium 139 meq/L (136-145)
--- NOTE | 2018-08-10 12:45 | ED ---
HPI General Chief Complaint: Respiratory Symptoms Stated Complaint: medical Time Seen by Provider: 08/10/18 11:34 Source: patient Mode of arrival: ambulatory Limitations: no limitations History of Present Illness Patient is a 47-year-old female who presents with complaint of several days of rhinorrhea and nasal congestion with a cough productive of green sputum and now with shortness of breath and chest pain particularly with inspiration and palpation. She states this is typical of her previous asthma attacks. No fever nor chills. No leg swelling or immobilization. She has previously been admitted to the ICU and intubated for her asthma but that was approximately 2 years ago which was the last time she was seen in emergency department for it. No family history of venous thromboembolism. MD Complaint: shortness of breath, cough, pain with inspiration and chest pain Onset (ago): day(s) Context: recent illness Severity: moderate Consistency/Duration: constant Relieving factors: nothing Exacerbating factors: nothing Known history of: asthma Associated symptoms: chest pain and cough Treatment prior to arrival: none Related Data Home Medications Medication Instructions Recorded Confirmed omeprazole 20 mg PO DAILY 08/10/18 08/10/18 Previous Rx's Medication Instructions Recorded propranolol 10 mg PO Q12H #10 tab 08/11/18 Allergies Allergy/AdvReac Type Severity Reaction Status Date / Time ceftriaxone Allergy Severe HIVES Verified 08/10/18 11:41 diatrizoate meglumine Allergy Severe HIVES Verified 08/10/18 11:41 gadobenic acid Allergy Severe HIVES Verified 08/10/18 11:41 gadodiamide Allergy Severe HIVES Verified 08/10/18 11:41 gadoteridol Allergy Severe HIVES Verified 08/10/18 11:41 iodixanol Allergy Severe HIVES Verified 08/10/18 11:41 iohexol Allergy Severe HIVES Verified 08/10/18 11:41 ketorolac Allergy Severe RESP Verified 08/10/18 11:41 DISTRESS latex Allergy Severe HIVES Verified 08/10/18 11:41 Iodinated Contrast- Oral and Allergy Mild Anaphylaxis Verified 08/10/18 11:41 IV Dye [Contrast] pollen extracts [Lettuce] Allergy Mild Anaphylaxis Verified 07/23/18 21:55 ANTIHISTAMINE Allergy Severe BRADYCARDIA Uncoded 04/23/18 09:38 Review of Systems ROS: all other systems reviewed are negative [facility] Medical History Medical History Anxiety (Acute) GERD (gastroesophageal reflux disease) (Acute) H/O: hysterectomy (Acute) Rib deformity (Acute) Surgical History Surgical History H/O arthroscopic knee surgery (Acute) H/O eye surgery (Acute) History of ankle surgery (Acute) History of carpal tunnel surgery of right wrist (Acute) History of tonsillectomy (Acute) S/P appy (Acute) Social History Social History Substance History: No History of Abuse Second Hand Smoke Exposure: Yes Smoking Status: Current every day smoker Tobacco Type: E-Cigarettes How Often Do You Have a Drink Containing Alcohol: Monthly or less Recent Travel in [facility] within the Last 8 Weeks: No Recent Out of Country Travel within the Last 8 Weeks: No Immunization History Tetanus Immunization: <5 Years Exam Narrative Exam Narrative: GENERAL: Well-appearing female in acute respiratory distress SKIN: Focused skin assessment warm/dry. No rashes. HEAD: Atraumatic. Normocephalic. EYES: Pupils equal and round. No scleral icterus. No injection or drainage. ENT: No nasal bleeding or discharge. Mucous membranes pink and moist. NECK: Trachea midline. No JVD. CARDIOVASCULAR: Tachycardic but regular. No murmur appreciated. Intact and equal peripheral pulses. RESPIRATORY: Accessory muscle use with decreased breath sounds and wheezes throughout, in respiratory distress GASTROINTESTINAL: Abdomen soft, non-tender, nondistended. Hepatic and splenic margins not palpable. MUSCULOSKELETAL: No obvious deformities. No clubbing. No cyanosis. No edema. NEUROLOGICAL: Awake and alert. No obvious cranial nerve deficits. Motor grossly within normal limits. Normal speech. PSYCHIATRIC: Appropriate mood and affect; insight and judgment normal. Course Initial Documented Vital Signs Pulse Rate 103 H 08/10/18 11:35 Respiratory Rate 24 08/10/18 11:35 Blood Pressure 129/69 08/10/18 11:35 Pulse Oximetry 96 08/10/18 11:35 Last Documented Vital Signs Pulse Rate 118 H 08/10/18 16:39 Respiratory Rate 18 08/10/18 16:39 Blood Pressure 132/59 L 08/10/18 16:39 Pulse Oximetry 99 09/14/18 16:39 Medical Decision Making MDM Narrative Medical decision making narrative: Patient is a 47-year-old female who presented in respiratory distress. She was given 3 duo nebs [id number] after which she felt much better and was no longer in distress. She is low risk for PE. EKG is nonspecific. CXR unremarkable. Labs unremarkable. She was observed in the ED several hours and did not have any further episodes of dyspnea, but did have intermittent chest pain. She was admitted to the chest pain center for serial troponins/EKGs and possible stress test. Medical Screen Exam Complete: Yes Emergency Medical Condition: Yes Differential Diagnosis Differential Diagnosis: Differential diagnosis includes but is not limited to pneumonia, pneumothorax, asthma exacerbation, acute coronary syndrome. Medical Records Medical records reviewed: Yes I reviewed the patient's medical records. Lab Data Result diagrams: 08/10/18 11:31 08/10/18 11:31 POC Results POC Urine Results Negative Lab Results 08/10/18 08/10/18 08/10/18 Range/Units 11:31 11:31 14:40 WBC 10.2 (4.0-11.0) th/mm3 RBC 4.73 (4.00-5.30) mil/mm3 Hgb 14.0 (11.6-15.3) gm/dL Hct 42.1 (35.0-46.0) % MCV 88.9 (80.0-100.0) fL MCH 29.6 (27.0-34.0) pg MCHC 33.3 (32.0-36.0) % RDW 12.7 (11.6-17.2) % Plt Count 323 (150-450) th/mm3 MPV 7.6 (7.0-11.0) fL D-Dimer Quant (PE/DVT) 0.39 (0.00-0.50) mg/L FEU Sodium 139 (136-145) meq/L Potassium 4.1 (3.5-5.1) meq/L Chloride 104 (98-107) meq/L Carbon Dioxide 26.7 (21.0-32.0) meq/L Anion Gap 8 (5-15) meq/L BUN 10 (7-18) mg/dL Creatinine 0.69 (0.50-1.00) mg/dL Estimated GFR Greater than 89 (>89) mL/min Random Glucose 83 (74-106) mg/dL Calcium 8.4 L (8.5-10.1) mg/dL Troponin I Less than 0.02 L (0.02-0.05) ng/mL TSH 1.100 (0.358-3.740) uIU/mL 08/10/18 08/10/18 Range/Units 15:55 15:55 WBC (4.0-11.0) th/mm3 RBC (4.00-5.30) mil/mm3 Hgb (11.6-15.3) gm/dL Hct (35.0-46.0) % MCV (80.0-100.0) fL MCH (27.0-34.0) pg MCHC (32.0-36.0) % RDW (11.6-17.2) % Plt Count (150-450) th/mm3 MPV (7.0-11.0) fL D-Dimer Quant (PE/DVT) (0.00-0.50) mg/L FEU Sodium (136-145) meq/L Potassium (3.5-5.1) meq/L Chloride (98-107) meq/L Carbon Dioxide (21.0-32.0) meq/L Anion Gap (5-15) meq/L BUN (7-18) mg/dL Creatinine (0.50-1.00) mg/dL Estimated GFR (>89) mL/min Random Glucose (74-106) mg/dL Calcium (8.5-10.1) mg/dL Troponin I Less than 0.02 L (0.02-0.05) ng/mL TSH Cancelled (0.358-3.740) uIU/mL Imaging Data Radiologist's impression: Chest X-Ray 08/10/18 11:35 CONCLUSION: No acute cardiopulmonary disease identified. ECG Data EKG Prior to Arrival: No Attestation: I personally reviewed and interpreted this ECG as follows: (Sinus rhythm at a rate of 95 bpm. Nonspecific T-wave changes throughout. No ST changes.) Discharge Plan Discharge Disposition Patient Disposition: Against Medical Advice Discharge Condition Condition: Stable Discharge Order Discharge Orders: AMA Discharge (Routine); Ordered 08/13/18 Ordered By: Nimisha Whitney Discharge Details Diagnosis: Chest pain, rule out acute myocardial infarction Physicians Team ED Provider: Nimisha Whitney Primary Care Provider: Nathan Vanessa Attending Provider: Kavon Crouch Discharge Interventions Interventions: ED Discharge Assessment Last Done: 08/10/18 20:22 Status ED Status: Left Department Discharge Information Discharge Date/Time: 08/10/18 20:20
[2018-08-10] MEDS ORDERED: Lidocaine 5% Patch T-DERMAL ONE (15:45)
[2018-08-10] MEDS ORDERED: Sod Chloride 0.9% Inj 1,000 ML IV.SIG SCH ×2 (15:45→18:00)
[2018-08-10 16:40] VITALS: BP 132/59; PULSE 118; RESP 18; O2SAT 99
[2018-08-10] MEDS ORDERED: Aluminum/Magnesium/Simethacone Susp 30 ML UDC PO ONE (18:03)
--- NOTE | 2018-08-11 22:23 | ECG ---
Date Performed: 08/10/2018 Time Performed: 11:40:46 PTAGE: 47 years EKG: Sinus rhythm POSSIBLE LEFT ATRIAL ENLARGEMENT ST DEVIATION AND MODERATE T-WAVE ABNORMALITY, CONSIDER ANTERIOR ISC HEMIA ABNORMAL ECG PREVIOUS TRACING : 07/24/2018 00.25 DOCTOR: Juaquin Starr Interpretating Date/Time 08/11/2018 22:15:01
== END 2018-08-10 20:21 | disposition left against medical advice (07) ==
LOC: NEDA 11:31 → NEPE 11:31 → NEDA 20:20
PROVIDERS: ADMIT Internal Medicine Interventional Cardiology; ATTEND Internal Medicine Interventional Cardiology